=== PATIENT | female | born 1975 | race American Indian/Alaskan Native ===

== ENCOUNTER 2018-01-24 11:40 | Outpatient (CLI) | payer OTHER ==
--- NOTE | 2018-01-24 12:53 | XRay Report ---
AP AND LATERAL LUMBOSACRAL SPINE: History: Back pain. The vertebral bodies are well mineralized and normal in alignment and vertebral height with well preserved interspace distances. The visualized portions of the posterior elements are normal. IMPRESSION: Normal study.
== END 2018-01-24 11:41 | disposition home or self-care (01) ==
LOC: XRAY 11:40
PROVIDERS: ATTEND Internal Medicine
DX: Z02.71 Encounter for disability determination (principal); M54.41 Lumbago with sciatica, right side; Z87.891 Personal history of nicotine dependence; Z90.710 Acquired absence of both cervix and uterus
CPT/HCPCS: 72100

== ENCOUNTER 2019-05-22 07:54 | Outpatient (CLI) | payer OTHER ==
[2019-05-30 08:03] LABS: CD19, Absolute SEE SCANNED RESULT; CD3, Absolute SEE SCANNED RESULT; CD3, Percentage SEE SCANNED RESULT; CD4, Absolute SEE SCANNED RESULT; CD4, Percentage SEE SCANNED RESULT; CD4/CD8 Ratio SEE SCANNED RESULT; CD8, Absolute SEE SCANNED RESULT; CD8, Percentage SEE SCANNED RESULT; Lymphocytes, Absolute SEE SCANNED RESULT
== END 2019-05-22 07:55 | disposition home or self-care (01) ==
LOC: XRAY 07:54
PROVIDERS: ATTEND Internal Medicine
DX: C81.70 Other Hodgkin lymphoma, unspecified site (principal); B20 Human immunodeficiency virus [HIV] disease
CPT/HCPCS: 36415; 82024